=== PATIENT | female | born 1930 | race Caucasian/White ===

== ENCOUNTER → 2019-05-23 | Outpatient (CLI) | payer OTHER ==
[~2019-05-23] MED LIST: AMARYL2 MG PO; ARICEPT 5 MG TAB5 MG PO; ASPIR 8181 M1 PO; ASPIR 8181 MG PO; ATIVAN1 MG SUBLING; BENADRYL25 MG PO; BENAZEPRIL HCL20 MG PO; CLARITIN10 M2 PO; COLACE100 MG PO; DELSYM COU30 MG/5 M1 PO; FOSAMAX 70 MG T70 MG PO; GLIPIZIDE 10 MG10 MG PO; HYDROCHLOROTH12.5 M1 PO; HYDROCHLOROTHIA25 M1 PO; LEVOTHYROXIN0.025 MG PO; LEXAPRO 10 MG T10 M1 PO; LISINOPRIL20 MG PO; MAGOX 400400 MG PO; METFORMIN HCL500 MG PO; MIRALAX17 GM PO; MORPHINE S20 MG/1 ML SUBLING; NAMENDA 5 MG TAB5 M1 PO; NORVASC10 MG PO; NORVASC5 MG PO; NOVOLOG100 UNIT/1 SUBQ; ONDANSETRON HCL4 M2 PO; PAROXETINE HCL40 MG PO; PAXIL10 MG PO; POTASSIUM20 PO; SIMVASTATIN40 MG PO; TOPROL XL25 MG PO; TYLENOL325 MG PO; ULTRAM 50MG TAB50 MG PO; XANAX 0.25 MG0.25 MG PO; XOPENEX0.63 MG/3 IH; ZINC OXIDE60 GM TP
== END ==
LOC: HYPER 06:24
DX: L91.8 Other hypertrophic disorders of the skin (principal); E11.51 Type 2 diabetes mellitus with diabetic peripheral angiopathy without gangrene; I10 Essential (primary) hypertension; G89.29 Other chronic pain; F41.9 Anxiety disorder, unspecified; Z87.891 Personal history of nicotine dependence; Z79.4 Long term (current) use of insulin; Z91.81 History of falling; Z79.84 Long term (current) use of oral hypoglycemic drugs; Z86.73 Personal history of transient ischemic attack (TIA), and cerebral infarction without residual deficits